=== PATIENT | male | born 1945 | race Caucasian/White ===

== ENCOUNTER 2018-02-27 20:58 | Observation (INO) ==
[2018-02-27] MEDS ORDERED: IOPAMIDOL 100 ML BOTTLE IV ONE (20:59)
[2018-02-27] MEDS ORDERED: LACTATED RINGERS 1,000 ML IV ONE (21:45)
[2018-02-27 22:26] LABS: Basophils # (Auto) 0 K/mcL (0.0-0.3); Basophils % (Auto) 0.4 % (0.0-2.0); Eosinophils # (Auto) 0.1 K/mcL (0.0-0.7); Eosinophils % (Auto) 1.3 % (0.0-7.0); Granulocytes % (Auto) 45.6 % (38.0-78.0); Lymphocytes # (Auto) 2.5 K/mcL (1.5-4.8); Mean Cell Volume 91.8 fL (80.0-100.0); Mean Corpuscular HGB Conc 33.6 g/dL (31.0-36.0); Monocytes # (Auto) 0.5 K/mcL (0.1-0.9); Monocytes % (Auto) 8.7 % (1.0-12.0); Platelet Count 166 K/mcL (140-440); RBC 4.07 M/mcL (4.50-5.90); Red Cell Distribution Width 14.1 % (11.5-14.5)
[2018-02-27 22:42] LABS: Creatine Kinase MB 1.1 ng/ml (0-4.9)
[2018-02-27 22:45] LABS: ALT/SGPT 16 U/l (0-40); Albumin 3.6 gm/dL (3.2-5.2); Albumin/Globulin Ratio 1.4 (1.0-2.3); Alkaline Phosphatase 66 U/L (39-117); Blood Urea Nitrogen 13 mg/dl (8-23)
[2018-02-27] MEDS ORDERED: cefTRIAXone 1 GM VIAL IV ONE (22:56)
[2018-02-27] MEDS ORDERED: LEVOFLOXACIN 750 MG/150 ML BAG IV ONE (22:56)
--- NOTE | 2018-02-27 23:05 | Emergency Department Note ---
General Adult HPI - General Chief complaint: Syncope Stated complaint: Syncope Time Seen by Provider: 02/27/18 21:43 Mode of arrival: ambulatory - History of Present Illness HPI Narrative: This is an alcoholic who was drinking heavily this evening slid on a wall and had trouble getting up and was blocking the door. He does not have much in way of specific complaints. His blood pressure was in the 80s but did come up to 90 2:09 liters of fluid. His lactic acid is elevated at 3.3. Denies abdominal pain cough chest pain. He does have a history of atrial fib but his rate is controlled. - Related Data Home Medications Medication Instructions Recorded Confirmed Allopurinol [Zyloprim] 200 mg PO DAILY 02/27/18 02/27/18 DULoxetine HCL [Cymbalta] 30 mg PO HS 02/27/18 02/27/18 Hydrochlorothiazide [Oretic] 12.5 mg PO QAM 02/27/18 02/27/18 Metoprolol Tartrate [Lopressor] 25 mg PO BID 02/27/18 02/27/18 Pravastatin [Pravachol] 40 mg PO DAILY 02/27/18 02/27/18 Prazosin HCl [Minipress] 2 mg PO HS 02/27/18 02/27/18 traZODone HCL [Trazodone HCl] 100 mg PO DAILY 02/27/18 02/27/18 Allergies Allergy/AdvReac Type Severity Reaction Status Date / Time No Known Drug Allergies Allergy Verified 01/09/17 10:01 Review of Systems All systems ED: reviewed and negative except as stated. Past Medical History - Past Medical History Medical history: Reports: GI bleed, glaucoma, other (Sleep apnea uses CiPAP at night) Psychiatric history: Reports: anxiety, depression Surgical history ED: Reports: non-contributory - Social History smoking status: Former smoker Alcohol use: Reports: Frequently, Daily, Heavy Drug use: Reports: none Physical Exam Limitations: no limitations General appearance: alert Head: atraumatic Eye: Present: normal appearance ENT: normal exam Neck: Present: normal inspection Chest: Present: normal inspection Respiratory: Present: normal lung sounds bilaterally Cardiovascular: Present: regular rate, irregular rhythm, normal heart sounds Abdominal: Present: soft. Absent: distention, tenderness Extremities: Present: pedal edema, pretibial edema Neurological: Present: alert Psychiatric: Present: normal affect Skin: Present: warm, dry, intact Course Vital Signs Temperature 96.8 F L 02/27/18 21:00 Pulse Rate 90 02/27/18 21:00 Respiratory Rate 12 02/27/18 21:00 Blood Pressure 98/71 02/27/18 21:00 Pulse Oximetry (%) 95 02/27/18 21:00 Temperature 96.8 F L 02/27/18 21:00 Pulse Rate 102 H 02/27/18 23:00 Respiratory Rate 18 02/27/18 23:00 Blood Pressure 99/68 02/27/18 23:00 Pulse Oximetry (%) 92 02/27/18 23:00 Medical Decision Making - MDM Narrative Medical decision making narrative: Chest ray x-ray is not good quality and ingestioncardiomegaly on the AP film. We will put a Sandoval in to get a urine. Blood cultures will be obtained. He will be started on some antibiotics. Dr. Hou will admit the patient to the ICU. - Lab Data Lab results reviewed: Yes I reviewed the patient's lab results. Result diagrams: 02/27/18 21:10 02/27/18 21:10 Lab Results 02/27/18 02/27/18 02/27/18 Range/Units 21:10 21:10 21:10 WBC 5.6 (4.5-11.0) K/mcL RBC 4.07 L (4.50-5.90) M/mcL Hgb 12.5 L (13.5-16.5) g/dL Hct 37.3 L (41.0-55.0) % MCV 91.8 (80.0-100.0) fL MCH 30.8 (26.0-34.0) pg MCHC 33.6 (31.0-36.0) g/dL RDW 14.1 (11.5-14.5) % Plt Count 166 (140-440) K/mcL MPV 8.4 (7.4-10.4) fL Gran % 45.6 (38.0-78.0) % Lymph % (Auto) 44.0 (15.5-49.0) % Christian % (Auto) 8.7 (1.0-12.0) % Eos % (Auto) 1.3 (0.0-7.0) % Baso % (Auto) 0.4 (0.0-2.0) % Gran # 2.5 (1.8-8.0) K/mcL Lymph # (Auto) 2.5 (1.5-4.8) K/mcL Christian # (Auto) 0.5 (0.1-0.9) K/mcL Eos # (Auto) 0.1 (0.0-0.7) K/mcL Baso # (Auto) 0 (0.0-0.3) K/mcL VBG Lactic Acid (0.5-2.0) mmol/L Sodium 134 (133-145) mmol/L Potassium 3.6 (3.3-5.1) mmol/L Chloride 95 L (96-108) mmol/L Carbon Dioxide 23 (22-30) mmol/L Anion Gap 16.0 (8-16) BUN 13 (8-23) mg/dl Creatinine 0.7 (0.7-1.2) mg/dl GFR Calculation 94 Glucose 98 (70-105) mg/dL Calcium 8.3 L (8.6-10.4) mg/dl Total Bilirubin 0.3 (0.0-1.0) mg/dL AST 36 (0-37) U/l ALT 16 (0-40) U/l Alkaline Phosphatase 66 (39-117) U/L Total Creatine Kinase 51 (24-195) IU/L CK-MB (CK-2) 1.1 (0-4.9) ng/ml Troponin T (0-0.03) ng/ml NT-Pro-B Natriuret Pep 538.0 H (0-125) pg/ml Total Protein 6.2 (5.9-8.4) gm/dL Albumin 3.6 (3.2-5.2) gm/dL Globulin 2.6 (2.2-3.7) gm/dL Albumin/Globulin Ratio 1.4 (1.0-2.3) Ethyl Alcohol (<0.010) gm/dl 02/27/18 02/27/18 02/27/18 Range/Units 21:10 21:10 21:50 WBC (4.5-11.0) K/mcL RBC (4.50-5.90) M/mcL Hgb (13.5-16.5) g/dL Hct (41.0-55.0) % MCV (80.0-100.0) fL MCH (26.0-34.0) pg MCHC (31.0-36.0) g/dL RDW (11.5-14.5) % Plt Count (140-440) K/mcL MPV (7.4-10.4) fL Gran % (38.0-78.0) % Lymph % (Auto) (15.5-49.0) % Christian % (Auto) (1.0-12.0) % Eos % (Auto) (0.0-7.0) % Baso % (Auto) (0.0-2.0) % Gran # (1.8-8.0) K/mcL Lymph # (Auto) (1.5-4.8) K/mcL Christian # (Auto) (0.1-0.9) K/mcL Eos # (Auto) (0.0-0.7) K/mcL Baso # (Auto) (0.0-0.3) K/mcL VBG Lactic Acid 3.3 H (0.5-2.0) mmol/L Sodium (133-145) mmol/L Potassium (3.3-5.1) mmol/L Chloride (96-108) mmol/L Carbon Dioxide (22-30) mmol/L Anion Gap (8-16) BUN (8-23) mg/dl Creatinine (0.7-1.2) mg/dl GFR Calculation Glucose (70-105) mg/dL Calcium (8.6-10.4) mg/dl Total Bilirubin (0.0-1.0) mg/dL AST (0-37) U/l ALT (0-40) U/l Alkaline Phosphatase (39-117) U/L Total Creatine Kinase (24-195) IU/L CK-MB (CK-2) (0-4.9) ng/ml Troponin T < 0.01 (0-0.03) ng/ml NT-Pro-B Natriuret Pep (0-125) pg/ml Total Protein (5.9-8.4) gm/dL Albumin (3.2-5.2) gm/dL Globulin (2.2-3.7) gm/dL Albumin/Globulin Ratio (1.0-2.3) Ethyl Alcohol 0.234 H (<0.010) gm/dl - Radiology Data Radiology results reviewed: Yes I reviewed the patient's radiology results. Disposition Pt seen by AUTHORIZATION REP/PA only: No Clinical Impression: Alcohol abuse, Sepsis Disposition: Xfer As Inpt ([facility]) Condition: Fair Referrals: Arron Fallon DO [Primary Care Provider] - Time of Disposition: 23:06
[2018-02-27] MEDS ORDERED: POTASSIUM CHLORIDE 20 MEQ, MAGNESIUM SULFATE 16.24 MEQ, THIAMINE 100 MG, MVI, ADULT NO.... IV SCH (23:30)
[2018-02-28 00:21] LABS: Appearance,Urine CLEAR; Bacteria,Urine 0 /hpf (0); Bilirubin,Urine NEG (NEG); Color,Urine STRAW; Glucose,Urine (UA) NEGATIVE (NEG); Leukocyte Esterase,Urine NEG /uL (NEG); Mucus,Urine FEW /hpf (0); Protein,Urine NEG (NEG); Specific Gravity,Urine 1.008 (1.000-1.035); Urine Blood 0.2 mg/dL (<0.03); Urine RBC 0 /hpf (0-1); Urine Squamous Epithelial Cell < 1 /hpf (0-4); Urine WBC 0 /hpf (0-4); Urobilinogen,Urine NEG (NEG)
[2018-02-28 00:24] LABS: Amphetamine Screen,Urine NONE DETECTED (NONDETECTED); Benzodiazepines Screen,Urine NONE DETECTED (NONDETECTED); Cocaine Screen,Urine NONE DETECTED (NONDETECTED); Opiate Screen,Urine NONE DETECTED (NONDETECTED); Oxycodone, Urine Screen NONE DETECTED (NONDETECTED)
[2018-02-28] MEDS ORDERED: MAGNESIUM SULFATE 8.12 MEQ/2 ML VIAL ONE (00:33)
[2018-02-28] MEDS ORDERED: POTASSIUM CHLORIDE 20 MEQ/10 ML VIAL IV ONE (00:34)
--- NOTE | 2018-02-28 00:50 | Internal Med History&Physical ---
Medical - H&P: [facility] Patient information: Note initiated : 02/28/18 at 12:47 am Service Date, if different from initiated Date: [] Patient: Obed Gary a 72 y/o M admitted on for Syncope. Chief Complaint: [] History of present illness: Mr. Gary is a 72 year old M with h/o afib on xareltro, heavy etoh use, presents to the ER today after passing out Patient has h/o alcohol abuse, he was quite stuporous during my visit but did mention that as per him he had 3 bottles of wine today, he thinks he passed out , and his was unable to pick him up so she called EMS to bring him in. He denies any other complaints or concerns. Denies any headache, chest pain, shortness of breath, fever, abdominal pain, nausea and or vomiting. Denies use of any other substance He has h/o heavy etoh use, GA patient follows with Dr Fallon The patient notes he has h/o etoh withdrawals if he does not drink alcohol. In the ER the patient was afebrile on presentation, but PB was low, 84/57 on lowest, did not [id number] well to fluids. Labs showed normal wbc, but elevated lactate at 3.3. chemistry unremarkable Etoh level elevated 0.234 UA neg EKG afib, Chest x ray shows cardiomegaly, widened mediastinum CT chest abdomen pelvis pending, CT head pending. patient being admitted ot the hospital for further management. IV fluids and ABX ordered in ER. Banana bag ordered in ER. All systems: reviewed and no additional remarkable complaints except as stated ( denies any complaints,admits to chr genralized pain) Medical - H&P: PMH Medical history: HTN Afib Obesity Chr pain CAD GERD DEANNE- sleep apnea Depression/H/o Suicide h/o DM Surgical history: cholecystectomy gastric bypass afib ablation? Family history: reviewed and not pertinent Pertinent family history: parents both had heart issues Social history: lives with drinks heavily denies other substance use ex smoker Medical - H&P: Meds Home Medications Medication Instructions Recorded Confirmed Type Allopurinol [Zyloprim] 200 mg PO DAILY 02/27/18 02/27/18 History DULoxetine HCL [Cymbalta] 30 mg PO HS 02/27/18 02/27/18 History Hydrochlorothiazide [Oretic] 12.5 mg PO QAM 02/27/18 02/27/18 History Metoprolol Tartrate [Lopressor] 25 mg PO BID 02/27/18 02/27/18 History Omeprazole 20 mg PO QAM 02/27/18 02/27/18 History Pravastatin [Pravachol] 40 mg PO DAILY 02/27/18 02/27/18 History Prazosin HCl [Minipress] 2 mg PO HS 02/27/18 02/27/18 History traZODone HCL [Trazodone HCl] 100 mg PO DAILY 02/27/18 02/27/18 History Allergies Allergy/AdvReac Type Severity Reaction Status Date / Time No Known Drug Allergies Allergy Verified 01/09/17 10:01 Medical - H&P: Exam - Constitutional Vitals: Temp Pulse Resp BP Pulse Ox 96.8 F L 82 17 80/61 93 02/27/18 21:00 02/28/18 00:31 02/28/18 00:31 02/28/18 00:31 02/28/18 00:31 Exam: GENERAL: The patient is a well-developed, obese in no apparent distress. Is drowsy but oriented x3. VITAL SIGNS: Reviewed and as noted elsewhere. HEENT: Head is normocephalic and atraumatic. Extraocular muscles are intact. Pupils are equal, round, and reactive to light. Nares appeared normal. Mouth appears any without lesions. Mucous membranes are dry. NECK: Normal to inspection, Supple, No lymphadenopathy or thyromegaly. LUNGS: Air entry equal on both sides, no wheezing, crackles or rhonchi noted. No accessory muscles of respiration HEART: Regular rate and rhythm normal, S1 and S2 heard, no Gallop, S3 or Rub Noted, No Gross murmur heard. ABDOMEN: Soft, nontender, and nondistended. Positive bowel sounds. No hepatosplenomegaly was noted. Large pannus EXTREMITIES: No cyanosis, clubbing, rash, lesions . Edema present + NEUROLOGIC: Cranial nerves II through XII are grossly intact. Motor and Sensory System Grossly Intact PSYCHIATRIC: drowsy, some stupor SKIN: No ulceration or wounds noted, No jaundice, No rash noted. Medical - H&P: Reslt - Labs CBC & Chem 7: 02/27/18 21:10 02/27/18 21:10 Labs: Short CBC 12/25/18 Range/Units 21:10 WBC 5.6 (4.5-11.0) K/mcL Hgb 12.5 L (13.5-16.5) g/dL Hct 37.3 L (41.0-55.0) % Plt Count 166 (140-440) K/mcL BMP 02/27/18 21:10 Sodium 134 Potassium 3.6 Chloride 95 L Carbon Dioxide 23 BUN 13 Creatinine 0.7 Glucose 98 Calcium 8.3 L Cardiac Enzymes 02/27/18 02/27/18 Range/Units 21:10 21:10 Total Creatine Kinase 51 (24-195) IU/L CK-MB (CK-2) 1.1 (0-4.9) ng/ml Troponin T < 0.01 (0-0.03) ng/ml Liver Function 02/27/18 Range/Units 21:10 Total Bilirubin 0.3 (0.0-1.0) mg/dL AST 36 (0-37) U/l ALT 16 (0-40) U/l Alkaline Phosphatase 66 (39-117) U/L Albumin 3.6 (3.2-5.2) gm/dL Urine 02/27/18 Range/Units 23:20 Urine Color Straw Urine Appearance Clear Urine pH 5.0 (5.0-9.0) Ur Specific Harrison 1.008 (1.000-1.035) Urine Protein Neg (NEG) mg/dL Urine Glucose (UA) Negative (NEG) mg/dL Medical - H&P: A/P - Narrative A/P Narrative: A/P Syncope Alcohol intoxication Hypotension CAD HTN DEANNE Chr pain Atrial fibrillation h/o GAstric bypass Obesity Lactic acidosis Plan Admit to PCU status CIWA protocol for etoh withdrawal Thiamine, MV , FOlic acid Seizure precautions IV fluids. to help with hydration, monitor BP , if does not respond to adequate resusitation, consider stating on pressors. hold home bp medications resume home meds as appropriate check for source of infection xray is neg, get chest abdome and pelvis, check procalcitonin., Head ct given h/o syncope and on xareltro DVT on xareltro Full code Regular diet
[2018-02-28] MEDS ORDERED: ALBUTEROL SULFATE 2.5 MG/3 ML NEBULIZER NEB PRN (01:48)
[2018-02-28] MEDS ORDERED: LORazepam 2 MG/ML VIAL IV PRN (01:48)
[2018-02-28] MEDS ORDERED: NOREPINEPHRINE BITARTRATE 16 MG in 0.9 % SODIUM CHLORIDE 234 ML IV PRN (01:48)
[2018-02-28] MEDS ORDERED: VANCOMYCIN 1,500 MG in 0.9 % SODIUM CHLORIDE 500 ML IV ONE (01:48)
[2018-02-28] MEDS ORDERED: LACTATED RINGERS 1,000 ML IV ONE (01:48)
[2018-02-28] MEDS ORDERED: VANCOMYCIN PER PHARMACY IV ONE (01:48)
[2018-02-28] MEDS: POTASSIUM CHLORIDE 20 MEQ, MAGNESIUM SULFATE 16.24 MEQ, THIAMINE 100 MG, MVI, ADULT NO.... IV SCH ×2 (02:06→09:01)
[2018-02-28] MEDS: 0.9 % SODIUM CHLORIDE 250 ML IV SCH ×2 (02:14→12:35)
[2018-02-28] MEDS: PIPERACILLIN SODIUM/TAZOBACTAM 3.375 GM in DEXTROSE 5% IN WATER 50 ML IV SCH ×4 (02:57→17:26)
[2018-02-28 05:51] LABS: Basophils # (Auto) 0 K/mcL (0.0-0.3); Basophils % (Auto) 0.7 % (0.0-2.0); Eosinophils # (Auto) 0 K/mcL (0.0-0.7); Eosinophils % (Auto) 1.1 % (0.0-7.0); Granulocytes % (Auto) 45.7 % (38.0-78.0); Lymphocytes # (Auto) 1.8 K/mcL (1.5-4.8); Lymphocytes % (Auto) 44.3 % (15.5-49.0); Mean Cell Volume 94.1 fL (80.0-100.0); Mean Corpuscular HGB Conc 34.1 g/dL (31.0-36.0); Monocytes # (Auto) 0.3 K/mcL (0.1-0.9); Monocytes % (Auto) 8.2 % (1.0-12.0); Platelet Count 137 K/mcL (140-440); RBC 3.87 M/mcL (4.50-5.90); Red Cell Distribution Width 15.1 % (11.5-14.5)
[2018-02-28 05:59] LABS: ALT/SGPT 15 U/l (0-40); Albumin 3.2 gm/dL (3.2-5.2); Albumin/Globulin Ratio 1.3 (1.0-2.3); Alkaline Phosphatase 62 U/L (39-117); Bilirubin,Direct < 0.2 mg/dL (0.0-0.3); Blood Urea Nitrogen 11 mg/dl (8-23); Gamma Glutamyl Transpeptidase 73 U/L (8-61); Uric Acid 3.8 mg/dL (2.5-8.0)
[2018-02-28] MEDS: 0.9 % SODIUM CHLORIDE 10 ML SYRINGE IV SCH ×3 (06:00→21:19)
[2018-02-28 06:14] LABS: Cortisol,AM 10.4 ug/dl (6.2-19.4)
[2018-02-28] MEDS ORDERED: POTASSIUM CHLORIDE 20 MEQ, MAGNESIUM SULFATE 16.24 MEQ, THIAMINE 100 MG, MVI, ADULT NO.... IV ONE (06:45)
[2018-02-28] MEDS ORDERED: VANCOMYCIN PER PHARMACY IV SCH (07:00)
[2018-02-28] MEDS ORDERED: 0.9 % SODIUM CHLORIDE 1,000 ML IV ONE (08:59)
[2018-02-28] MEDS ORDERED: 0.9 % SODIUM CHLORIDE 1,000 ML IV SCH (09:00)
[2018-02-28] MEDS ORDERED: VANCOMYCIN 500 MG in 0.9 % SODIUM CHLORIDE 100 ML IV ONE (09:00)
--- NOTE | 2018-02-28 09:25 | XRay Report ---
CLINICAL INFORMATION: syncope COMPARISON: 01/09/2017 FINDINGS: Marked cardiomegaly show slight increase. There is also moderate mediastinal widening. The pulmonary vessels are unremarkable. Mild left basilar airspace disease has developed which may represent atelectasis or developing infiltrate. No effusion. IMPRESSION: Marked cardiomegaly but no CHF. Small left basilar infiltrate or atelectasis Interpreted and Authenticated by: Mani De La Cruz 02/28/18
[2018-02-28] MEDS: PANTOPRAZOLE 40 MG TABLET PO SCH (09:36)
[2018-02-28] MEDS: MULTIVIT,THER IRON,CA,FA & MIN 1 TABLET PO SCH (09:36)
[2018-02-28] MEDS: FOLIC ACID 1 MG TABLET PO SCH (09:36)
[2018-02-28] MEDS: THIAMINE 100 MG TABLET PO SCH (09:56)
--- NOTE | 2018-02-28 10:24 | Cat Scan Report ---
CLINICAL INFORMATION: Syncope COMPARISON: 06/19/[address] TECHNIQUE: 2.5 mm helical slices were obtained in the skull base to vertex. Following reconstruction, axial reformatted images were reviewed at bone and parenchymal windows. The exam was performed using radiation dose optimization techniques including, but not limited to, automated exposure control, adjustment of the mA and/or kV according to patient size and use of iterative reconstruction technique. FINDINGS: The ventricles, sulci, fissures, and cisterns are minimally enlarged relative mild age-related atrophy. This is unchanged. No extra-axial fluid collections are identified. Minimal chronic ischemic changes in the cerebral white matter typical for age. There is no evidence of hemorrhage, mass effect, or edema. Bone windows show no osseous abnormality. IMPRESSION: Mild atrophy and minimal chronic ischemic changes in the cerebral white matter typical for age. No acute findings and no change from 06/19/2016 2 cm polyp right maxillary sinus Excessive intraconal and intraorbital fat with proptosis. Please correlate with thyroid function tests to ensure the absence Graves' disease Interpreted and Authenticated by: Mani De La Cruz 02/28/18
[2018-02-28] MEDS: METOPROLOL TARTRATE 5 MG/5 ML VIAL IV SCH ×3 (12:37→13:12)
[2018-02-28] MEDS: ALLOPURINOL 100 MG TABLET PO SCH (14:28)
[2018-02-28] MEDS: METOPROLOL TARTRATE 25 MG TABLET PO SCH ×2 (14:28→21:18)
--- NOTE | 2018-02-28 14:39 | Cat Scan Report ---
CLINICAL INFORMATION: Trauma - fall COMPARISON: Chest CT 06/21/[address] 06/23/2006 TECHNIQUE: Enteric contrast was utilized. 80 cc of Isovue-300 were injected intravenously, and 50 seconds later 2.5 mm helical slices were obtained from the lung apices through the subtrochanteric regions of the femurs. Following reconstruction, 2.5 mm sagittal, coronal and axial reformatted images were processed and reviewed at multiple windows and levels. 7 mm MIP reconstructions were obtained through the lungs to optimize nodule detection.The exam was performed using radiation dose optimization techniques including, but not limited to, automated exposure control, adjustment of the mA and/or kV according to patient size and use of iterative reconstruction technique. FINDINGS: Pulmonary parenchymal windows show only subsegmental atelectasis in both dependent posterior upper and lower lobes. No infiltrates or contusions. There are no effusions or pneumothorax. Mediastinal windows show the heart is mildly enlarged with asymmetric enlargement of the right atrium and ventricle. Small hiatal hernia noted. Thoracic aorta is normal in contour and caliber. Pulmonary arteries show no evidence of embolus. Moderate moderate mediastinal fat is appreciated. Images through the abdomen show the gallbladder is surgically absent. Intrahepatic and extra hepatic bile ducts are normal caliber CBD is 6 mm. The liver, both kidneys, adrenal glands, spleen and aorta, including aortic branches, are normal in size, configuration, and attenuation without focal lesion. There is a 20 mm relatively well-defined low-attenuation lesion in the anterior pancreatic tail. This region is poorly visualized 2007 study was likely not present. The remaining pancreas, including the pancreatic duct, is normal. No free air, free fluid or adenopathy. Stomach, small and large bowel are normal. Juan-en-Y gastric bypass changes are unremarkable Pelvic images show a Sandoval catheter probably positioned within the urinary bladder with near complete decompression - no gross bladder abnormality. The prostate and seminal vesicles are normal. Bone windows show no fracture or posttraumatic change. Syndesmophytes throughout the thoracic vertebral bodies are suggestive of ankylosing spondylitis. There is also partial ankylosis across the SI joints. IMPRESSION: 1. No posttraumatic change throughout the chest, abdomen or pelvis 2. 20 mm low-attenuation lesion in the anterior pancreatic tail which may be new from 2007. It may represent a pancreatic cyst or low-grade malignancy such as IPMT. Consider abdominal MRI/MRCP for further evaluation and correlation with Ca19-9 3. Juan-en-Y gastric bypass changes no gross abnormality. 4. Syndesmophytes bridging the thoracic vertebral bodies and partial ankylosis across the SI joint suggesting ankylosing spondylitis. Interpreted and Authenticated by: Mani De La Cruz 02/28/18
[2018-02-28] MEDS ORDERED: DILTIAZEM 25 MG/5 ML VIAL IV ONE (17:17)
[2018-02-28] MEDS ORDERED: PRAZOSIN 1 MG CAPSULE PO SCH (21:00)
[2018-02-28] MEDS ORDERED: DULoxetine 30 MG CAPSULE PO SCH (21:00)
[2018-02-28] MEDS ORDERED: SIMVASTATIN 20 MG TABLET PO SCH (21:00)
[2018-02-28] MEDS: DABIGATRAN ETEXILATE MESYLATE 75 MG CAPSULE PO SCH (21:17)
[2018-02-28] MEDS ORDERED: METOPROLOL TARTRATE 25 MG TABLET PO ONE (22:07)
[2018-02-28] MEDS ORDERED: ACETAMINOPHEN 500 MG TABLET PO PRN (22:08)
[2018-02-28] MEDS ORDERED: METOPROLOL TARTRATE 5 MG/5 ML VIAL IV PRN (22:09)
[2018-02-28] MEDS ORDERED: ACETAMINOPHEN 500 MG TABLET PO ONE (22:15)
[2018-02-28] MEDS ORDERED: METOPROLOL TARTRATE 5 MG/5 ML VIAL IV ONE (22:15)
[2018-03-01] MEDS: PIPERACILLIN SODIUM/TAZOBACTAM 3.375 GM in DEXTROSE 5% IN WATER 50 ML IV SCH ×3 (00:09→11:55)
[2018-03-01] MEDS: 0.9 % SODIUM CHLORIDE 250 ML IV SCH (03:22)
[2018-03-01] MEDS: 0.9 % SODIUM CHLORIDE 10 ML SYRINGE IV SCH (05:30)
[2018-03-01 05:39] LABS: Basophils # (Auto) 0 K/mcL (0.0-0.3); Basophils % (Auto) 0.3 % (0.0-2.0); Eosinophils # (Auto) 0 K/mcL (0.0-0.7); Eosinophils % (Auto) 0.8 % (0.0-7.0); Granulocytes % (Auto) 67.7 % (38.0-78.0); Lymphocytes # (Auto) 1.2 K/mcL (1.5-4.8); Lymphocytes % (Auto) 21.9 % (15.5-49.0); Mean Cell Volume 94.7 fL (80.0-100.0); Mean Corpuscular HGB Conc 33.6 g/dL (31.0-36.0); Monocytes # (Auto) 0.5 K/mcL (0.1-0.9); Monocytes % (Auto) 9.3 % (1.0-12.0); Platelet Count 144 K/mcL (140-440); Red Cell Distribution Width 15.2 % (11.5-14.5)
[2018-03-01 06:20] LABS: ALT/SGPT 17 U/l (0-40); Albumin 3.3 gm/dL (3.2-5.2); Albumin/Globulin Ratio 1.2 (1.0-2.3); Alkaline Phosphatase 67 U/L (39-117); Bilirubin,Direct < 0.2 mg/dL (0.0-0.3); Blood Urea Nitrogen 13 mg/dl (8-23); Gamma Glutamyl Transpeptidase 73 U/L (8-61)
[2018-03-01] MEDS ORDERED: OMEPRAZOLE 20 MG CAPSULE PO SCH (07:30)
[2018-03-01] MEDS: PANTOPRAZOLE 40 MG TABLET PO SCH (07:40)
[2018-03-01] MEDS: ALLOPURINOL 100 MG TABLET PO SCH (07:59)
[2018-03-01] MEDS: MULTIVIT,THER IRON,CA,FA & MIN 1 TABLET PO SCH (08:05)
[2018-03-01] MEDS: FOLIC ACID 1 MG TABLET PO SCH (08:05)
[2018-03-01] MEDS: DABIGATRAN ETEXILATE MESYLATE 75 MG CAPSULE PO SCH (08:09)
[2018-03-01] MEDS: THIAMINE 100 MG TABLET PO SCH (08:09)
[2018-03-01] MEDS ORDERED: VANCOMYCIN 1,500 MG in 0.9 % SODIUM CHLORIDE 500 ML IV SCH (09:00)
[2018-03-01] MEDS ORDERED: HYDROCHLOROTHIAZIDE 12.5 MG CAPSULE PO SCH (09:00)
[2018-03-01] MEDS ORDERED: traZODone HCL 100 MG TABLET PO SCH (09:00)
[2018-03-01] MEDS ORDERED: METOPROLOL TARTRATE 25 MG TABLET PO SCH (09:00)
[2018-03-01] MEDS ORDERED: PNEUMOCOCCAL 23-VAL P-SAC VAC 0.5 ML SYRINGE IM ONE (10:00)
--- NOTE | 2018-03-01 11:05 | Discharge Summary ---
Medical - DS: Prov Patient information: Note initiated : 03/01/18 at 11:03 am Service Date, if different from initiated Date: [] Patient: Obed Gary 72 y/o M admitted on 02/28/18 for Syncope. Chief Complaint: [] Date of admission: 02/28/18 01:35 Discharge date: 03/01/18 Primary care physician: Arron Fallon Consults: 02/27/18 Consult to Physician [CONS] Stat Comment: Consulting Provider: Amber Hou Reason For Exam: Physician to Consult Discharging clinician: Amber Hou Medical - DS: Meds - Discharge Medications Active and Home Medications: Home Medications Allopurinol [Zyloprim] 200 mg PO DAILY 02/27/18 [History Confirmed 02/27/18 Last Taken Unknown] DULoxetine HCL [Cymbalta] 30 mg PO HS 02/27/18 [History Confirmed 02/27/18 Last Taken Unknown] Hydrochlorothiazide [Oretic] 12.5 mg PO QAM 02/27/18 [History Confirmed Last Taken Unknown] Metoprolol Tartrate [Lopressor] 25 mg PO BID 02/27/18 [History Confirmed Last Taken Unknown] Omeprazole 20 mg PO QAM 02/27/18 [History Confirmed 02/27/18 Last Taken Unknown] Pravastatin [Pravachol] 40 mg PO DAILY 02/27/18 [History Confirmed 02/27/18 Last Taken Unknown] Prazosin HCl [Minipress] 2 mg PO HS 02/27/18 [History Confirmed 02/27/18 Last Taken Unknown] traZODone HCL [Trazodone HCl] 100 mg PO DAILY 02/27/18 [History Confirmed Last Taken Unknown] Dabigatran Etexilate Mesylate [Pradaxa] 150 mg PO BID 02/28/18 [History Confirmed 02/28/18 Last Taken 02/27/18] rOPINIRole HCL [Requip] 0.5 mg PO BID 02/28/18 [History Confirmed 02/28/18 Last Taken 02/27/18] Medical - DS: Hosp Hospital course: Mr. Gary is a 72 year old M with h/o afib on xareltro, heavy etoh use, presents to the ER today after passing out Patient has h/o alcohol abuse, he was quite stuporous during my visit but did mention that as per him he had 3 bottles of wine today, he thinks he passed out , and his was unable to pick him up so she called EMS to bring him in. He denies any other complaints or concerns. Denies any headache, chest pain, shortness of breath, fever, abdominal pain, nausea and or vomiting. Denies use of any other substance He has h/o heavy etoh use, AL patient follows with Dr Fallon The patient notes he has h/o etoh withdrawals if he does not drink alcohol. In the ER the patient was afebrile on presentation, but PB was low, 84/57 on lowest, did not [id number] well to fluids. Labs showed normal wbc, but elevated lactate at 3.3. chemistry unremarkable, Etoh level elevated 0.234, UA neg,EKG afib,Chest x ray shows cardiomegaly, widened mediastinum CT chest abdomen pelvis neg for any infectious pathology/mediastinal pathology The patient was treated and observed in PCU, IV fluids helped bring up the blood pressure, pt was started on broad spectrum ABX, which will be discontinued as cultures are negative, Lactic acidosis resolved Educated at length regarding etoh cessations. He will talk with his PCP to see if he can get any medications to help with same. Also advised to follow up with pain clinic for chronic pain management. Afib- Patient had elevated HR, takes metoprolol at home at 25mg bid, dose increased to 50m bid with good response. Continue anticoagulation with dabigatran. No changes made to chronic home meds, pt to continue same except metoprolol. Discharge diagnosis: Hypotension, Alcohol intoxication - Time Spent with Patient Total time spent providing and/or coordinating discharge services: Greater than 30 minutes Medical - DS: Exam - Constitutional Vitals: Vital Signs Temp Pulse Resp BP BP Pulse Ox 03/01/18 06:36 19 96 03/01/18 06:31 20 122/85 96 03/01/18 06:01 20 130/93 96 03/01/18 05:31 25 H 134/91 96 03/01/18 05:25 128/82 96 03/01/18 03:29 98 03/01/18 02:19 96 03/01/18 02:01 15 103/75 95 03/01/18 01:31 94/64 03/01/18 01:26 89 L 03/01/18 01:01 18 106/62 95 03/01/18 00:31 117/86 96 03/01/18 00:08 97 03/01/18 00:01 96.8 F L 18 122/89 97 02/28/18 23:31 112/82 02/28/18 23:01 116/75 02/28/18 22:31 16 132/99 94 02/28/18 22:22 9 L 02/28/18 21:31 18 133/98 95 02/28/18 21:20 13 02/28/18 21:01 18 128/98 02/28/18 20:31 25 H 121/87 02/28/18 20:02 25 H 99/52 02/28/18 19:31 25 H 109/77 97 02/28/18 19:01 115/70 95 02/28/18 18:31 21 120/73 02/28/18 18:01 22 123/69 96 02/28/18 17:31 28 H 146/67 96 02/28/18 17:02 20 160/91 96 02/28/18 16:31 13 145/109 98 02/28/18 16:01 97.9 F 18 145/120 96 02/28/18 15:47 98.4 F 15 132/85 97 02/28/18 15:31 20 132/85 99 02/28/18 15:01 20 145/92 98 02/28/18 14:31 20 120/96 97 02/28/18 14:17 130/94 99 02/28/18 14:00 118 H 18 97 02/28/18 13:31 17 125/91 98 02/28/18 13:01 20 112/72 97 02/28/18 12:48 20 112/70 96 02/28/18 12:31 20 132/92 96 02/28/18 12:03 97.8 F 28 H 136/103 97 02/28/18 12:01 97.9 F 21 145/99 97 02/28/18 11:43 20 136/103 96 02/28/18 11:31 20 132/94 97 Intake and Output 02/28/18 03/01/18 03/01/18 21:59 05:59 13:59 Intake Total 390 / 390 50 / 50 Output Total 1145 / 1145 81 / 81 Balance -755 / -755 -31 / -31 Intake: IV 50 / 50 50 / 50 Zosyn 3.375 gm In Dextrose 5% 50 / 50 50 / 50 in Water 50 ml @ 100 mls/hr IV Q6H [facility] Rx#:[id number] Oral 340 / 340 Output: Urine Catheter Amount 1145 / 1145 80 / 80 # of times incontinent of urine Other: Meal Dinner Percent of Meal Consumed 75% Feeding Ability Independent Urine Appearance Clear Uretheral (Sandoval) Clear Urine Color Bright Red Blood Tinged Uretheral (Sandoval) Bright Yellow Urine Odor Normal Uretheral (Sandoval) Normal Stool Size Moderate Stool Color Brown Yellow Stool Consistency Loose # Bowel Movements 1 Weight 273 lb 3.2 oz Additional comments: Constitutional; Afebrile, cooperative, alert, not in distress. Eyes- No icterus, , No periorbital swelling Ears- Ext ear normal, hearing normal to conversation. Neck- Midline trachea, supple Respiratory system: Air Entry equal on both sides, No crackles or wheezing, no rhonchi. CVS- Rate rhythm irregular, S1,S2 heard, no gallop, no rub. Abdomen- Soft nontender abdomen, no organomegaly, no tenderness, no guarding or rigidity, [employer]- AOOx3, moving all extremities, no gross focal deficit noted. Medical - DS: Data Labs on day of discharge: Labs from last 24 hours 03/01/18 03/01/18 02/28/18 03:30 03:30 18:39 WBC 5.7 RBC 4.00 L Hgb 12.7 L Hct 37.9 L MCV 94.7 MCH 31.8 MCHC 33.6 RDW 15.2 H Plt Count 144 MPV 8.9 Gran % 67.7 Lymph % (Auto) 21.9 Cole % (Auto) 9.3 Eos % (Auto) 0.8 Baso % (Auto) 0.3 Gran # 3.8 Lymph # (Auto) 1.2 L Cole # (Auto) 0.5 Eos # (Auto) 0 Baso # (Auto) 0 VBG Lactic Acid 1.6 Sodium 140 Potassium 4.1 Chloride 104 Carbon Dioxide 24 Anion Gap 12.0 BUN 13 Creatinine 0.9 GFR Calculation 84 Glucose 98 Uric Acid 3.0 Calcium 8.2 L Phosphorus 2.9 Magnesium 1.9 Total Bilirubin 0.7 Direct Bilirubin < 0.2 GGT 73 H AST 34 ALT 17 Alkaline Phosphatase 67 Lactate Dehydrogenase 167 Total Protein 6.0 Albumin 3.3 Globulin 2.7 Albumin/Globulin Ratio 1.2 Triglycerides 53 CA 19-9 Antigen Pending 02/28/18 13:15 WBC RBC Hgb Hct MCV MCH MCHC RDW Plt Count MPV Gran % Lymph % (Auto) Cole % (Auto) Eos % (Auto) Baso % (Auto) Gran # Lymph # (Auto) Cole # (Auto) Eos # (Auto) Baso # (Auto) VBG Lactic Acid 2.3 H Sodium Potassium Chloride Carbon Dioxide Anion Gap BUN Creatinine GFR Calculation Glucose Uric Acid Calcium Phosphorus Magnesium Total Bilirubin Direct Bilirubin GGT AST ALT Alkaline Phosphatase Lactate Dehydrogenase Total Protein Albumin Globulin Albumin/Globulin Ratio Triglycerides CA 19-9 Antigen Preliminary micro results at discharge 02/27/18 23:08 Blood Culture - Preliminary Blood 02/27/18 23:00 Blood Culture - Preliminary Blood Medical - DS: A/P - Patient/Caregiver Discharge Instructions Activity: increase activity as tolerated Diet: Cardiac Additional Instructions: Please follow up with PCP in 1 week Increase your dose of metoprolol from 25mg twice daily to 50mg twice daily. Please take all your other medications as prescribed by your PCP Talk to your PCP to see if you need help with alcohol abstinence. Also discuss referral to a pain clinic. Go to the ER if chest pain,shortness of breath or any other acute concern. Follow up with Physical therapy, as outpatient of you choice. - Follow up Plan Follow up with: Arron Fallon DO [Primary Care Provider] - Disposition: Home, Self-Care Prognosis: Fair Rehab Potential: Fair I certify that the patient requires SNF services: No Overall status at discharge: patient is progressing back to baseline Medical - DS: Qual - VTE Deep Vein Thrombosis/Pulmonary Embolism Present on Admission: No
== END 2018-03-01 14:30 | disposition home or self-care (01) ==
LOC: ED 20:58 → INTOOBSV 02-28 01:35 → ICU 02-28 01:35
PROVIDERS: ADMIT Internal Medicine; ATTEND Internal Medicine